=== PATIENT | female | born 1990 | race Caucasian/White ===

== ENCOUNTER 2020-08-13 06:45 | Day surgery (SDC) | payer OTHER ==
[~2020-08-13] VITALS: Ht 157.5 cm; Wt 70.4 kg
[2020-08-13 06:52] VITALS: BP 126/76
--- NOTE | 2020-08-13 06:53 | NUR ---
PT AMBULATED TO BED 11 WITH STEADY GAIT
--- NOTE | 2020-08-13 06:55 | NUR ---
29 YO F BIB SELF FOR C/C OF 5/10 PAIN TO LEFT BREAST. PT HAS A MASS IN LEFT BREAST AND WAS EVALUATED BY DR. NGO IN OUTPATIENT CLINIC YESTERDAY. PER PT- WAS TOLD BY DR. NGO TO COME TO ER TODAY TO BE TAKEN TO SURGERY. BED LOCKED AND IN LOWEST POSITION. SIDE RAILS X1. NKA NO MED HX RX: LEXAPRO
--- NOTE | 2020-08-13 07:17 | NUR ---
Received report from JACOB Vazquez. Transfer of care at this time.
--- NOTE | 2020-08-13 07:22 | NUR ---
Covid swab collected from pt.
[2020-08-13] MEDS ORDERED: AMPICILLIN/SULBACTAM 3 GM VIAL ONE ×2 (07:25→12:19)
[2020-08-13] MEDS: AMPICILLIN/SULBACTAM 3 GM in NACL 0.9% MINI-BAG PLUS 100 ML IV ONE (07:48)
[2020-08-13] MEDS: NACL 0.9% 1,000 ML IV SCH ×2 (07:49→10:45)
[2020-08-13 07:55] LABS: BASOPHILS % (AUTO) 0.3 % (0.0-2.0); EOSINOPHILS # (AUTO) 0.3 K/uL (0-0.4); EOSINOPHILS % (AUTO) 2.3 % (0.0-4.0); LYMPHOCYTES # (AUTO) 2.6 K/uL (2.5-16.5); LYMPHOCYTES % (AUTO) 23.1 % (20.5-51.1); MEAN CORPUSCULAR HEMOGLOBIN 29 pg (27-31); MEAN CORPUSCULAR HGB CONC 33 g/dL (33-37); MEAN CORPUSCULAR VOLUME 88.1 fL (80-94); MONOCYTES # (AUTO) 0.8 K/uL (0.8-1.0); MONOCYTES % (AUTO) 7.2 % (1.7-9.3); NEUTROPHILS # (AUTO) 7.4 K/uL (1.8-7.7); NEUTROPHILS % (AUTO) 67.1 % (42.2-75.2); PLATELET COUNT (AUTO) 265 K/uL (140-450); RED BLOOD CELL COUNT(AUTO) 5.11 MIL/uL (4.20-5.40); RED CELL DISTRIBUTION WIDTH 12.7 % (11.6-13.7); WHITE BLOOD COUNT (AUTO) 11.1 K/uL (4.8-10.8)
[2020-08-13 08:08] LABS: ANION GAP 13.5 (8-16); CARBON DIOXIDE 25.5 mmol/L (21-32); CREATININE 0.9 mg/dL (0.6-1.3)
--- NOTE | 2020-08-13 09:00 | NUR ---
DR. NGO AT BEDSIDE EVALUATING PT
[2020-08-13] MEDS ORDERED: ONDANSETRON 4 MG/2 ML VIAL IV PRN (09:55)
[2020-08-13] MEDS ORDERED: MORPHINE SULFATE 2 MG/ML SYR IVP PRN ×2 (09:55→14:35)
[2020-08-13] MEDS ORDERED: MORPHINE SULFATE 4 MG/ML SYR IV PRN (09:55)
[2020-08-13] MEDS ORDERED: HYDROmorphone 1 MG/ML AMP IVP PRN ×2 (09:55→17:00)
[2020-08-13] MEDS ORDERED: ACETAMINOPHEN 325 MG TAB PO PRN ×2 (09:55→14:35)
--- NOTE | 2020-08-13 10:00 | NUR ---
PT ON CELLPHONE IN BED. NO NEW NEEDS AT THIS TIME
[2020-08-13] MEDS: AMPICILLIN/SULBACTAM 3 GM in NACL 0.9% 100 ML IV SCH (12:23)
--- NOTE | 2020-08-13 12:30 | NUR ---
PT RESTING IN BED, NO NEW NEEDS AT THIS TIME.
[2020-08-13] MEDS ORDERED: NACL 0.9% 1,000 ML IV SCH (14:35)
[2020-08-13] MEDS ORDERED: ONDANSETRON 4 MG/2 ML VIAL IVP PRN ×2 (14:35→17:00)
[2020-08-13 15:15] VITALS: BP 114/81
--- NOTE | 2020-08-13 15:15 | NUR ---
PT TAKEN TO OR FOR SURGERY. PT IS D/C FROM EMERGENCY DEPT. OR STAFF & ER DIRECTOR, JIHAN Martinez MADE AWARE THAT AN INPATIENT BED WAS NOT ASSIGNED TO PATIENT YET.
[2020-08-13] MEDS ORDERED: HYDROGEN PEROXIDE 3% 240 ML BTL TP ONE (16:43)
[2020-08-13] MEDS: LIDOCAINE/EPI MPF 1%1:200000 30 ML VIAL INJ ONE (17:29)
[2020-08-14] MEDS ORDERED: AMPICILLIN/SULBACTAM 1.5 GM in NACL 0.9% 50 ML IV SCH (06:00)
--- NOTE | 2020-08-15 11:15 | NUR ---
PATIENT HAS BEEN SCREENED AND CATEGORIZED LOW NUTRITION RISK. PATIENT WILL BE SEEN WITHIN 7 DAYS OF ADMISSION. 08/20/20 ANTONIO KAPADIA MBA, RD
== END 2020-08-13 19:17 | disposition home or self-care (01) ==
LOC: MED 06:45 → UNDOADMIN 09:48 → MMU 09:48 → MDS 09:48 → MMU 19:17 → MDS 19:17
PROVIDERS: ATTEND Surgery
DX: N61.1 Abscess of the breast and nipple (principal); F17.200 Nicotine dependence, unspecified, uncomplicated
CPT/HCPCS: 19020; 19101; 36415; 76641; 80048; 85025; 87040; 87070; 87075; 87205; 87426; 88304; 96365; 96366; 99285; J0295; J2001; Q0092

== ENCOUNTER 2020-12-07 07:31 | Day surgery (SDC) | payer OTHER ==
[~2020-12-07] VITALS: Ht 157.5 cm; Wt 69.9 kg
[2020-12-07 07:50] VITALS: BP 122/84
--- NOTE | 2020-12-07 07:53 | NUR ---
CAME HERE FOR BREAST SURGERY BY DR NGO. C/O LUMP TO RIGHT BREAST X 3 MONTHS. PMH: RIGHT KIDNEY REMOVAL , GLANULOMATOUS MASTITIS.
[2020-12-07 09:38] LABS: BASOPHILS % (AUTO) 0.4 % (0.0-2.0); EOSINOPHILS # (AUTO) 0.3 K/uL (0-0.4); EOSINOPHILS % (AUTO) 2.4 % (0.0-4.0); HEMATOCRIT 42.1 % (36-48); HEMOGLOBIN 13.9 g/dL (12.0-16.0); LYMPHOCYTES % (AUTO) 26.5 % (20.5-51.1); MEAN CORPUSCULAR HEMOGLOBIN 29 pg (27-31); MEAN CORPUSCULAR HGB CONC 33 g/dL (33-37); MEAN CORPUSCULAR VOLUME 86.7 fL (80-94); MONOCYTES # (AUTO) 0.9 K/uL (0.8-1.0); MONOCYTES % (AUTO) 7.8 % (1.7-9.3); NEUTROPHILS # (AUTO) 7.2 K/uL (1.8-7.7); NEUTROPHILS % (AUTO) 62.9 % (42.2-75.2); PLATELET COUNT (AUTO) 316 K/uL (140-450); RED BLOOD CELL COUNT(AUTO) 4.85 MIL/uL (4.20-5.40); RED CELL DISTRIBUTION WIDTH 12.9 % (11.6-13.7); WHITE BLOOD COUNT (AUTO) 11.5 K/uL (4.8-10.8)
[2020-12-07 10:01] LABS: ALBUMIN 3.9 g/dL (3.4-5.0); ANION GAP 17.2 (8-16); CARBON DIOXIDE 24.8 mmol/L (21-32); CREATININE 0.9 mg/dL (0.6-1.3); TOTAL BILIRUBIN 0.3 mg/dL (0.0-1.0)
--- NOTE | 2020-12-07 10:12 | NUR ---
COVID MARCELO SWAB COLLECTED & SENT TO LAB.
[2020-12-07 11:30] VITALS: BP 122/84
--- NOTE | 2020-12-07 11:30 | NUR ---
Patient taken to OR via wheelchair by water treatment technician.
[2020-12-07] MEDS ORDERED: BUPIVACAINE-MPF/EPI 0.5% 30 ML VIAL INJ ONE (11:49)
[2020-12-07] MEDS ORDERED: MEPERIDINE 25 MG/ML SYR IVP PRN (12:00)
[2020-12-07] MEDS ORDERED: ONDANSETRON 4 MG/2 ML VIAL IVP PRN (12:00)
[2020-12-07] MEDS ORDERED: NACL 0.9% 1,000 ML IV SCH (12:00)
[2020-12-07 12:27] LABS: PROTHROMBIN TIME 9.7 secs (10.8-13.4)
[2020-12-07] MEDS ORDERED: ONDANSETRON 4 MG/2 ML VIAL ONE (12:52)
[2020-12-07] MEDS ORDERED: SEVOFLURANE 250 ML BTL INH ONE (12:52)
[2020-12-07] MEDS ORDERED: ROCURONIUM 50 MG/5 ML VIAL IV ONE (12:52)
[2020-12-07] MEDS ORDERED: MIDAZOLAM 2 MG/2 ML VIAL ONE (12:52)
[2020-12-07] MEDS ORDERED: DEXAMETHASONE 4 MG/ML VIAL ONE (12:52)
[2020-12-07] MEDS ORDERED: fentaNYL citrate 0.05 MG/ML VIAL ONE (12:52)
[2020-12-07] MEDS ORDERED: PROPOFOL 200 MG/20 ML VIAL IV ONE (12:52)
[2020-12-07] MEDS ORDERED: SUCCINYLCHOLINE CHLORIDE 200 MG/10 ML VIAL IVP ONE (12:52)
[2020-12-07] MEDS ORDERED: SUGAMMADEX SODIUM 200 MG/2 ML VIAL IV ONE (12:52)
[2020-12-07] MEDS ORDERED: ceFAZolin 1,000 MG VIAL ONE (12:53)
[2020-12-07] MEDS ORDERED: HYDROGEN PEROXIDE 3% 240 ML BTL TP ONE (13:27)
[2020-12-07] MEDS ORDERED: HYDROmorphone PFS 2 MG/ML SYR ONE (14:11)
[2020-12-07] MEDS: HYDROmorphone 1 MG/ML AMP IVP PRN ×2 (14:16→14:28)
[2020-12-07 14:23] LABS: APPEARANCE,URINE CLOUDY (CLEAR); BILIRUBIN,URINE NEGATIVE (NEGATIVE); BLOOD, URINE TRACE-I (NEGATIVE); COLOR,URINE DARK YELLOW (YELLOW); LEUKOCYTE ESTERASE ,URINE NEGATIVE (NEGATIVE); NITRITE, URINE NEGATIVE (NEGATIVE); PH,URINE 5.5 (5.0-9.0); UGLUCOSE NEGATIVE (NEGATIVE)
== END 2020-12-07 16:30 | disposition home or self-care (01) ==
LOC: MED 07:31 → MOR 12:39 → MTU 12:47 → MFCC 12:54 → MOR 16:30
PROVIDERS: ATTEND Surgery
DX: N61.1 Abscess of the breast and nipple (principal); N61.21 Granulomatous mastitis, right breast; Z90.5 Acquired absence of kidney; Z79.899 Other long term (current) drug therapy
CPT/HCPCS: 19020; 36415; 80053; 81003; 85025; 85610; 85730; 87070; 87075; 87205; 87426; 93005; J0330; J0690; J1100; J1170; J2250; J2405; J2704; J3010; J3490; 88304

== ENCOUNTER → 2021-12-05 | Outpatient (CLI) | payer OTHER, SELFPAY ==
[~2021-12-05] MED LIST: DYN250 PO; NORCO PO
== END | disposition home or self-care (01) ==
LOC: MLB 09:48 → EDSTATUS 12-08 12:00
PROVIDERS: ATTEND Surgery
DX: Z01.812 Encounter for preprocedural laboratory examination (principal); U07.1 COVID-19; N61.23 Granulomatous mastitis, bilateral breast
CPT/HCPCS: 71045

== ENCOUNTER 2021-12-26 07:44 | Day surgery (SDC) | payer OTHER, SELFPAY ==
[~2021-12-26] VITALS: Ht 157.5 cm; Wt 65.8 kg
== END 2021-12-26 10:45 | disposition home or self-care (01) ==
LOC: MDS 07:44 → MMU 07:45 → MDS 10:45
PROVIDERS: ATTEND Surgery
DX: N61.21 Granulomatous mastitis, right breast (principal); Z20.822 Contact with and (suspected) exposure to COVID-19; Z53.8 Procedure and treatment not carried out for other reasons
CPT/HCPCS: 87426; J0690; J7060